=== PATIENT | female | born 1965 | race Caucasian/White ===

== ENCOUNTER 2017-04-09 10:40 | Emergency (ER) | payer MEDICARE, MEDICAID ==
[~2017-04-09] VITALS: Ht 162.6 cm; Wt 55.6 kg
[~2017-04-09 10:40] MED LIST: ALBUAER3 INH; BREX1TAB3 PO; BREX1TAB4 PO; CYCL1TAB29 PO; CYMB60CA PO; DICY10 PO; NAPR500T PO; PERC10TA27 PO; PROM25TA5 PO; SERO25TA PO; VENTAER INH
--- NOTE | 2017-04-09 10:57 | PD ---
HPI Chief Complaint: ANXIOUS Time Seen by Provider: 10:53 Travel History International Travel<30 days: No Contact w/Intl Traveler<30days: No History of Present Illness HPI HAS H/O ANXIETY, IS SHAKY, BREATHING FAST, AND NOW HER LIPS FEEL TINGLY, SHE HAS FELT LIKE THIS BEFORE AND HAS BEEN ASSOC WITH HER ANXIETY DX...TODAY'S MAIN COMPLAINT PALPITATIONS PFSH Past Medical History Arthritis: Yes Asthma: Yes Bipolar Disorder: Yes (bipolar, adjustment disorder) Anxiety: Yes Depression: Yes Cancer: Yes (breast cancer, remission for 5 years) Cardiovascular Problems: Yes (Murmur) Chemotherapy: Yes (5-6 years ago ) Cerebrovascular Accident: Yes (TIA) Diminished Hearing: No Diverticulitis: Yes Deep Vein Thrombosis: Yes (2 or 3 years ago was last, multiple ) Fibromyalgia: Yes Gastrointestinal Disorders: Yes (IBS, INTERSTICIAL CYSTISIS) GERD: Yes Hepatitis: Yes (hep c, received interferon treatments, in remission) Hiatal Hernia: Yes Insomnia: Yes Neurologic: Yes (REYNODS/NEUROPATHY HANDS AND FEET) Psychiatric: Yes (OCD) Respiratory: Yes (Asthma, COPD) Immunizations Current: Yes Migraines: Yes Pneumonia: Yes Seizures: Yes ("3 black out seizures in the last 8 months") Menopausal: Yes : 7 Para: 4 Ovarian Cysts: Yes Past Surgical History Abdominal Surgery: Yes (abdominal tumor removals, neisen fundoplication, bowel perforation repair) Hysterectomy: Yes Mastectomy: Yes (bilateral mastectomy with reconstruction (abd flaps)) Other Surgery: Yes (hx of port a cath -from hep c treatments in 1997) Social History Alcohol Use: Yes (OCC/SOCIAL) Tobacco Use: Yes (1/2 pack for 15 years) Substance Use: Yes (occasional marijuana) Allergies-Medications (Allergen,Severity, Reaction): Coded Allergies: Contrast Media (Verified Allergy, Severe, Anaphylaxis, 04/09/17) Morphine (Verified Allergy, Severe, Anaphylaxis, 04/09/17) Shellfish (Verified Allergy, Severe, Hives, 04/09/17) Zofran (Verified Allergy, Severe, Anaphylaxis, 04/09/17) Dexamethasone (Verified Allergy, Intermediate, Rash, 04/09/17) Tramadol (Verified Allergy, Intermediate, hallucinations, 04/09/17) Codeine (Verified Allergy, Unknown, 04/09/17) Reported Meds & Prescriptions Reported Meds & Active Scripts Active Naproxen 500 Mg Tab 500 Mg PO BID 7 Days Flexeril (Cyclobenzaprine HCl) 10 Mg Tab 10 Mg PO TID 5 Days Reported Proair Hfa 8.5 GM Inh (Albuterol Sulfate) 90 Mcg/Act Aer 2 Puff INH Q4-6H PRN 108 mcg/actuation Ventolin Hfa 18 GM Inh (Albuterol Sulfate) 90 Mcg/Act Aer 2 Puff INH Q4-6H PRN Phenergan (Promethazine HCl) 25 Mg Tab 25 Mg PO Q6H PRN Percocet (Oxycodone-Acetaminophen) 10-325 mg Tab 1 Tab PO Q4H PRN Bentyl (Dicyclomine HCl) 10 Mg Cap 10 Mg PO QID Seroquel (Quetiapine Fumarate) 25 Mg Tab 25 Mg PO HS Cymbalta DR (Duloxetine HCl) 60 Mg Capdr 60 Mg PO BID Rexulti (Brexpiprazole) 1 Mg Tab 1 Mg PO DAILY Rexulti (Brexpiprazole) 2 Mg Tab 2 Mg PO DAILY Review of Systems Except as stated in HPI: all other systems reviewed are Neg Psychiatric: Positive: Anxiety (NO SI/HI) Physical Exam Narrative GENERAL: SKIN: Warm and dry. HEAD: Atraumatic. Normocephalic. EYES: Pupils equal and round. No scleral icterus. No injection or drainage. ENT: No nasal bleeding or discharge. Mucous membranes pink and moist. NECK: Trachea midline. No JVD. CARDIOVASCULAR: Regular rate and rhythm. RESPIRATORY: No accessory muscle use. Clear to auscultation. Breath sounds equal bilaterally. GASTROINTESTINAL: Abdomen soft, non-tender, nondistended. Hepatic and splenic margins not palpable. MUSCULOSKELETAL: Extremities without clubbing, cyanosis, or edema. No obvious deformities. NEUROLOGICAL: Awake and alert. No obvious cranial nerve deficits. Motor grossly within normal limits. Five out of 5 muscle strength in the arms and legs. Normal speech. PSYCHIATRIC: Appropriate mood and affect; insight and judgment normal. HOWEVER SO ANXIOUS THAT SHE IS HYPERVENTILATING, SHAKING/TREMBLING GENERALLY Data Data Last Documented VS Vital Signs Date Time Temp Pulse Resp B/P Pulse Ox O2 Delivery O2 Flow Rate FiO2 04/09/17 11:00 98.1 95 20 138/68 97 04/09/17 11:00 Room Air Orders Electrocardiogram (04/09/17 10:59) Complete Blood Count With Diff (04/09/17 10:59) Comprehensive Metabolic Panel (04/09/17 10:59) Lipase (04/09/17 10:59) Cath For Specimen (04/09/17 10:59) Thyroid Stimulating Hormone (04/09/17 10:59) Chest, Single Ap (04/09/17 10:59) Iv Access Insert/Monitor (04/09/17 10:59) Ecg Monitoring (04/09/17 10:59) Lorazepam Inj (Ativan Inj) (04/09/17 11:00) Labs Laboratory Tests Test 04/09/17 11:18 White Blood Count 9.9 TH/MM3 Red Blood Count 5.20 MIL/MM3 Hemoglobin 15.4 GM/DL Hematocrit 47.8 % Mean Corpuscular Volume 91.8 FL Mean Corpuscular Hemoglobin 29.7 PG Mean Corpuscular Hemoglobin 32.3 % Concent Red Cell Distribution Width 14.0 % Platelet Count 407 TH/MM3 Mean Platelet Volume 8.1 FL Neutrophils (%) (Auto) 62.4 % Lymphocytes (%) (Auto) 28.4 % Monocytes (%) (Auto) 7.2 % Eosinophils (%) (Auto) 0.8 % Basophils (%) (Auto) 1.2 % Neutrophils # (Auto) 6.2 TH/MM3 Lymphocytes # (Auto) 2.8 TH/MM3 Monocytes # (Auto) 0.7 TH/MM3 Eosinophils # (Auto) 0.1 TH/MM3 Basophils # (Auto) 0.1 TH/MM3 CBC Comment DIFF FINAL Differential Comment Sodium Level 142 MEQ/L Potassium Level 4.1 MEQ/L Chloride Level 106 MEQ/L Carbon Dioxide Level 25.9 MEQ/L Anion Gap 10 MEQ/L Blood Urea Nitrogen 12 MG/DL Creatinine 0.63 MG/DL Estimat Glomerular Filtration 99 ML/MIN Rate Random Glucose 89 MG/DL Calcium Level 9.4 MG/DL Total Bilirubin 0.5 MG/DL Aspartate Amino Transf 21 U/L (AST/SGOT) Alanine Aminotransferase 28 U/L (ALT/SGPT) Alkaline Phosphatase 114 U/L Total Protein 8.0 GM/DL Albumin 3.8 GM/DL Lipase 303 U/L Thyroid Stimulating Hormone 0.892 uIU/ML 3rd Gen [facility] Medical Decision Making Medical Screen Exam Complete: Yes Emergency Medical Condition: Yes Medical Record Reviewed: Yes Interpretation(s) NSR 96, HEAVY MOTION ARTIFACT, NUNO, WITHOUT STEMI PATTERN Differential Diagnosis HYPERTHYROID, ANEMIA, ANXIETY, HYPOGLYCEMIA/ELECTROLYTE DISTURBANCE Narrative Course EKG DID NOT REVEAL ANY DYSRYTHMIA, CXR NEG FOR PNA/PULM EDEMA/PLEURAL EFFUSION...CBC AND CMP WERE WNL AND TSH WAS ALSO WNL.PALPITATION MOST LIKELY DUE TO ANXIETY, SINCE PALPITATION RESOLVED AFTER RECEIVING ATIVAN IN ED. Diagnosis Primary Impression: Palpitations Patient Instructions: General Instructions, Palpitations (ED) Disposition: 01 DISCHARGE HOME Condition: Stable Lukas Euceda MD Apr 09, 2017 10:57
[2017-04-09 11:00] VITALS: BP 138/68; PULSE 95; RESP 20; TEMP 98.1; O2SAT 97
[2017-04-09] MEDS ORDERED: LORazepam 2 MG/ML VIAL IV PUSH ONE (11:00)
[2017-04-09 11:28] LABS: AUTOMATED NEUTROPHIL # 6.2 TH/MM3 (1.8-7.7); BASOPHIL # 0.1 TH/MM3 (0-0.2); BASOPHIL % 1.2 % (0.0-2.0); EOSINOPHIL # 0.1 TH/MM3 (0-0.4); EOSINOPHIL % 0.8 % (0.0-4.0); HEMATOCRIT 47.8 % (35.0-46.0); HEMO FLAGS DIFF FINAL; LYMPH % 28.4 % (9.0-44.0); LYMPHOCYTE # 2.8 TH/MM3 (1.0-4.8); MEAN CELL VOLUME 91.8 FL (80.0-100.0); MEAN CORPUSCULAR HEMOGLOBIN 29.7 PG (27.0-34.0); MEAN CORPUSCULAR HGB CONC 32.3 % (32.0-36.0); MONO % 7.2 % (0.0-8.0); NEUT % 62.4 % (16.0-70.0); PLATELET COUNT 407 TH/MM3 (150-450); WHITE BLOOD COUNT 9.9 TH/MM3 (4.0-11.0)
[2017-04-09 11:36] LABS: CHLORIDE 106 MEQ/L (98-107); POTASSIUM 4.1 MEQ/L (3.5-5.1); SODIUM (NA) 142 MEQ/L (136-145)
[2017-04-09 11:40] LABS: ANION GAP 10 MEQ/L (5-15); BICARBONATE 25.9 MEQ/L (21.0-32.0); BLOOD UREA NITROGEN 12 MG/DL (7-18)
[2017-04-09 11:43] LABS: ALT (GPT) 28 U/L (10-53); AST (GOT) 21 U/L (15-37); GLOMERULAR FILTRATION RATE 99 ML/MIN (>89)
[2017-04-09 11:45] LABS: TOTAL BILIRUBIN ADULT 0.5 MG/DL (0.2-1.0)
--- NOTE | 2017-04-09 11:45 | RADHPO ---
EXAM DATE/TIME: 04/09/2017 11:13 [facility] COMPARISON: CHEST SINGLE AP, July 29, 2016, 12:32. INDICATIONS : Chest pain. MEDICAL HISTORY : Chronic obstructive pulmonary disease. Carcinoma, breast. SURGICAL HISTORY : Mastectomy, bilateral. Infusaport ENCOUNTER: Initial ACUITY: 1 day PAIN SCORE: 8/10 LOCATION: Bilateral chest FINDINGS: A single view of the chest demonstrates the lungs to be symmetrically aerated without evidence of mas s, infiltrate or effusion. The cardiomediastinal contours are unremarkable. Osseous structures are intact. [id number] on the left. Postsurgical changes with surgical clips bilaterally. CONCLUSION: No acute disease. Johan Han MD FACR on April 09, 2017 at 11:42 Board Certified Radiologist. This report was verified electronically.
[2017-04-09 11:46] LABS: ALKALINE PHOSPHATASE 114 U/L (45-117)
[2017-04-09] MEDS ORDERED: ALPR.5 PO (12:23)
[2017-04-09] MEDS ORDERED: METH10TA PO (12:23)
[2017-04-09] MEDS ORDERED: LINA145C PO (12:24)
[2017-04-09 12:34] VITALS: BP 151/80
--- NOTE | 2017-04-10 13:38 | EKG ---
Date Performed: 04/09/2017 Time Performed: 10:48:31 PTAGE: 51 years EKG: Sinus rhythm RIGHT ATRIAL ENLARGEMENT ST ELEVATION, PROBABLY EARLY REPOLARIZATION ABNORMAL ECG NO PREVIOUS TRACING DOCTOR: Hay Henriquez Interpretating Date/Time 04/10/2017 13:36:00
== END 2017-04-09 12:54 | disposition home or self-care (01) ==
LOC: PHED 10:40
DX: R00.2 Palpitations (principal); Z85.3 Personal history of malignant neoplasm of breast; Z86.73 Personal history of transient ischemic attack (TIA), and cerebral infarction without residual deficits; Z86.718 Personal history of other venous thrombosis and embolism; Z90.13 Acquired absence of bilateral breasts and nipples
CPT/HCPCS: 71010; 80053; 83690; 84443; 85025; 93005; 96374; 99285; J1642; J2060

== ENCOUNTER 2017-05-01 20:14 | Emergency (ER) | payer MEDICARE, MEDICAID ==
[~2017-05-01] VITALS: Ht 162.6 cm; Wt 50.2 kg
[~2017-05-01 20:14] MED LIST changes: +ALPR.5 PO; -BREX1TAB3 PO; -BREX1TAB4 PO; +LINA145C PO; +METH10TA PO; -NAPR500T PO; -PROM25TA5 PO
[2017-05-01 20:21] VITALS: BP 139/74; PULSE 89; RESP 15; TEMP 98.2; O2SAT 97
--- NOTE | 2017-05-01 20:45 | PD ---
HPI . Mouth sores and pinched nerve pain Chief Complaint: Fall Time Seen by Provider: 20:44 Travel History International Travel<30 days: No Contact w/Intl Traveler<30days: No Traveled to known affect area: No History of Present Illness HPI 51-year-old female with history of chronic pain here with complaints of mouth sores. Patient tells me that proximally 3 days ago she developed an infection in her mouth and she would like me to prescribe her doxycycline 40 pills, just as her son had been previously prescribed. She tells me that he had infection was treated here at [facility] and given doxycycline. Apparently he stopped taking the antibodies and gave her some of them and they helped her with her skin infection. At this present moment she does not have any signs of active infection. She then goes on to tell me that she sustained a fall and could not exactly recall when this fall was. She told me that it initially happened today , but then upon further questioning she told me it happened late last night. Patient is requesting muscle relaxers for her pinched nerve that she can take at home. She says she has had pinched nerves in the past and she just needs some meds. She is currently already on pain medications. She also goes on to tell me that she has ulcer her mouth and she would like this "mouthwash thing" that she can use. PFSH Past Medical History Arthritis: Yes Asthma: Yes Bipolar Disorder: Yes (bipolar, adjustment disorder) Anxiety: Yes Depression: Yes Cancer: Yes (breast cancer, remission ) Cardiovascular Problems: Yes (murmur) Chemotherapy: Yes (5-6 years ago ) COPD: Yes Cerebrovascular Accident: Yes Diminished Hearing: Yes Diverticulitis: Yes Deep Vein Thrombosis: Yes (2 or 3 years ago was last, multiple ) Fibromyalgia: Yes Gastrointestinal Disorders: Yes (IBS, INTERSTICIAL CYSTISIS diverticulitis) GERD: Yes Hepatitis: Yes (hep c, received interferon treatments, in remission) Hiatal Hernia: Yes Inguinal Hernia: Yes Implanted Vascular Access Dvce: Yes (lt chest) Insomnia: Yes Kidney Stones: Yes Musculoskeletal: Yes (ddd) Neurologic: Yes (REYNODS/NEUROPATHY HANDS AND FEET) Psychiatric: Yes (OCD adjustment disorder) Immunizations Current: Yes Migraines: Yes Pneumonia: Yes Seizures: Yes ("3 black out seizures in the last 8 months") Ulcer: Yes (stomache) Tetanus Vaccination: < 5 Years Influenza Vaccination: No ?: Not Menopausal: Yes : 7 Para: 4 Ovarian Cysts: Yes Dilation and Curettage (D&C): Yes Tubal Ligation: Yes Past Surgical History Abdominal Surgery: Yes (abdominal tumor removals, neisen fundoplication, bowel perforation repair i) Genitourinary Surgery: Yes (bladder repair) Hysterectomy: Yes Mastectomy: Yes (bilateral mastectomy with reconstruction (abd flaps)) Oral Surgery: Yes Other Surgery: Yes (hx of port a cath -from hep c treatments in 1997 ing hernia ) Social History Alcohol Use: No (quit) Tobacco Use: Yes (10/26 ppd) Substance Use: Yes (occasional marijuana) Allergies-Medications (Allergen,Severity, Reaction): Coded Allergies: Contrast Media (Verified Allergy, Severe, Anaphylaxis, 05/01/17) Morphine (Verified Allergy, Severe, Anaphylaxis, 05/01/17) Shellfish (Verified Allergy, Severe, Hives, 05/01/17) Zofran (Verified Allergy, Severe, Anaphylaxis, 05/01/17) Dexamethasone (Verified Allergy, Intermediate, Rash, 05/01/17) Tramadol (Verified Allergy, Intermediate, hallucinations, 05/01/17) Codeine (Verified Allergy, Unknown, 05/01/17) Reported Meds & Prescriptions Reported Meds & Active Scripts Active Lidocaine Viscous Liq 2 % Liqd 5 Ml SWISH-SWAL QID PRN 5 Days Reported Linzess (Linaclotide) 145 Mcg Cap 145 Mcg PO DAILY Xanax (Alprazolam) 0.5 Mg Tab 0.5 Mg PO BID PRN Methadone (Methadone HCl) 10 Mg Tab 10 Mg PO QID Proair Hfa 8.5 GM Inh (Albuterol Sulfate) 90 Mcg/Act Aer 2 Puff INH Q4-6H PRN 108 mcg/actuation Ventolin Hfa 18 GM Inh (Albuterol Sulfate) 90 Mcg/Act Aer 2 Puff INH Q4-6H PRN Percocet (Oxycodone-Acetaminophen) 10-325 mg Tab 1 Tab PO Q4H PRN Bentyl (Dicyclomine HCl) 10 Mg Cap 10 Mg PO QID Seroquel (Quetiapine Fumarate) 25 Mg Tab 200 Mg PO HS Cymbalta DR (Duloxetine HCl) 60 Mg Capdr 60 Mg PO DAILY Review of Systems General / Constitutional: No: Fever Eyes: No: Visual changes HENT: No: Headaches Cardiovascular: No: Chest Pain or Discomfort Respiratory: No: Shortness of Breath Gastrointestinal: No: Abdominal Pain Genitourinary: No: Dysuria Musculoskeletal: No: Pain Skin: No Rash Neurologic: Positive: Other (pinched nerve), No: Weakness Psychiatric: No: Depression Endocrine: No: Polydipsia Hematologic/Lymphatic: No: Easy Bruising Physical Exam Narrative GENERAL: AAO x 3, no acute distress, Well-nourished, well-developed patient. SKIN: Warm and dry. No visible rashes or bruising. dried lesions on corner of lips. no active lesions with erythema, edema, warmth, or purulence. HEAD: Normocephalic and atraumatic. EYES: No scleral icterus. No injection or drainage. EOM intact, PERRLA ENT: No nasal drainage noted. Mucous membranes pink. Airway patent. small aphthous ulcer on floor of mouth. NECK: Supple, trachea midline. No JVD. no c spine process tenderness. Full ROM of neck. CARDIOVASCULAR: Regular rate and rhythm without murmurs, gallops, or rubs. RESPIRATORY: Breath sounds equal bilaterally. No accessory muscle use. No rhonchi or rales. GASTROINTESTINAL: Abdomen soft, non-tender, nondistended. EXTREMITIES: No cyanosis or edema. all joints move freely. ambulatory. moving around bed uncontrollably BACK: Nontender without obvious deformity. No CVA tenderness. NEURO: CN II-12 intact, grants specialist strength normal b/l, UE and LE 5/5, no focal deficits PSYCH: AAO x 3, normal affect. Data Data Last Documented VS Vital Signs Date Time Temp Pulse Resp B/P Pulse Ox O2 Delivery O2 Flow Rate FiO2 05/01/17 20:21 98.2 89 15 139/74 97 Orders Orphenadrine Inj (Norflex Inj) (05/01/17 21:00) MDM Medical Decision Making Medical Screen Exam Complete: Yes Emergency Medical Condition: Yes Medical Record Reviewed: Yes Differential Diagnosis chronic pain, aphthous ulcer, healed skin lesions, drug seeking behavior Narrative Course 51-year-old female here requesting multiple medications. Exam is fairly unremarkable except for small aphthous ulcer on the floor of her mouth. I've explained to patient that unfortunately I will not be providing her with antibiotics as I do not see the need for them. There is no active infection. She is afebrile. I will not be providing her with muscle relaxers, except for a dose of norflex here in the ED. She is already on pain medications which can be used for her symptoms. This pain seems to be chronic pain and she is moving around so freely and does not seem to be in any discomfort. I have provided her with lidocaine swish and swallow for her aphthous ulcer. I recommend follow-up with primary care provider and pain specialist. Diagnosis Primary Impression: Aphthous ulcer Additional Impression: Chronic pain Qualified Code: G89.29 - Other chronic pain Patient Instructions: General Instructions Additional Instructions: Follow-up with your pain specialist for further medications for control of your neck pain. Med/Other Pt SpecificInfo: Prescription(s) given Scripts Lidocaine Viscous Liq 2 % Liqd5 Ml SWISH-SWAL QID PRN (PAIN) 5 Days Ref 0 Prov:Mimi Davis MD 05/01/17 Disposition: 01 DISCHARGE HOME Condition: Stable Paty Boone May 01, 2017 20:44
[2017-05-01] MEDS ORDERED: LIDO1SOL8 SWISH-SWAL (20:58)
[2017-05-01] MEDS ORDERED: ORPHENADRINE INJ 60 MG/2 ML AMP IM ONE (21:00)
== END 2017-05-01 21:10 | disposition home or self-care (01) ==
LOC: PHEFT 20:14
DX: K12.0 Recurrent oral aphthae (principal); G89.29 Other chronic pain; F17.200 Nicotine dependence, unspecified, uncomplicated
CPT/HCPCS: 96372; 99284; J2360